=== PATIENT | female | born 1995 | race American Indian/Alaskan Native ===

== ENCOUNTER 2020-02-16 06:02 | Emergency (ER) | payer SELFPAY ==
[2020-02-16] MEDS ORDERED: Ketorolac 60 MG/2 ML SDV IM ONE (06:49)
[2020-02-16] MEDS ORDERED: Bacitracin Oint 1 GM U/D Packet TOP ONE (07:04)
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
== END 2020-02-16 09:30 | disposition home or self-care (01) ==
LOC: JP.ED 06:02
DX: S71.111A Laceration without foreign body, right thigh, initial encounter (principal); S90.01XA Contusion of right ankle, initial encounter; E66.9 Obesity, unspecified; F17.210 Nicotine dependence, cigarettes, uncomplicated; W45.8XXA Other foreign body or object entering through skin, initial encounter
CPT/HCPCS: 12001; 96372; 99284; J1885; J2001